=== PATIENT | male | born 1970 | race Caucasian/White ===

== ENCOUNTER 2021-04-05 15:54 | Emergency (ER) | payer OTHER, SELFPAY ==
[2021-04-05] MEDS ORDERED: EPINEPHrine 1MG/10ML SYRINGE 1.5IN ONE (15:55)
== END 2021-04-05 19:05 | disposition expired ==
LOC: EDUNIT# 15:54 → EDBD 15:54 → M ED 15:54
DX: I46.9 Cardiac arrest, cause unspecified (principal); E78.5 Hyperlipidemia, unspecified
CPT/HCPCS: 92950; 99285; U0002

== ENCOUNTER → 2021-04-06 | Outpatient (REF) ==
[2021-04-06 11:36] LABS: INFLUENZA A AMPLIFICATION NEGATIVE (NEGATIVE); INFLUENZA B AMPLIFICATION NEGATIVE (NEGATIVE)
== END ==
LOC: M LAB 08:33